=== PATIENT | male | born 1985 | race Caucasian/White ===

== ENCOUNTER 2019-09-24 01:49 | Emergency (ER) | payer SELFPAY ==
[2019-09-24 02:01] VITALS: BP 144/99; PULSE 67
[2019-09-24] MEDS ORDERED: Alum Hydrox/Mag Hydrox/Simeth 30 ML, Lidocaine 2% 15 ML PO STA ×2 (03:47)
[2019-09-24] MEDS ORDERED: Ondansetron 4 MG/2 ML SDV IVPUSH ONE (03:49)
[2019-09-24] MEDS ORDERED: HYDROmorphone 1 MG/ML Syringe IVPUSH ONE (03:49)
--- NOTE | 2019-09-24 03:55 | EDM.PDOC ---
ED HPI GENERAL MEDICAL PROBLEM - General Chief Complaint: Chest Pain Stated Complaint: CHEST PAIN Time Seen by Provider: 09/24/19 03:32 Source of Information: Reports: Patient, Other (3 friends) History Limitations: Reports: No Limitations - History of Present Illness INITIAL COMMENTS - FREE TEXT/NARRATIVE: Mr. Fernandez is a very pleasant 33-year-old man with a past medical history significant for allergic rhinitis and suspected asthma, both untreated, who now presents to the ED with a complaint of epigastric and lower midline chest pain that developed around 23:00 this evening, while eating at [employer]. He describes the sensation as a pressure. It is a pain, not a discomfort. It waxes and wanes, feeling better if he holds his breath or takes a hot shower. He has drunk water, which has not improved his pain. He had nausea earlier tonight, but not now. No emesis. No dyspnea. Questionable diaphoresis. No sense of impending doom. The patient states that he took some TUMS and Pepto-Bismol, without any relief. He states that he had virtually identical symptoms about 1 month ago, also while eating. He did not seek medical attention, and the pain resolved the next day. Here in the ED, the patient's BP was initially mildly elevated, but he is otherwise hemodynamically stable, afebrile, saturating 100% on room air. The patient does not have a PCP. He has not received an influenza vaccine this season, and declined an offer to receive one here today. Middle Chest Pain Score (Numeric/FACES): 7 - Related Data Allergies Allergy/AdvReac Type Severity Reaction Status Date / Time No Known Allergies Allergy Verified 09/24/19 02:00 Home Meds: Home Meds . [No Known Home Meds] 09/24/19 [History] Past Medical History HEENT History: Reports: Allergic Rhinitis Respiratory History: Reports: Asthma (suspected, not tested) - Past Surgical History HEENT Surgical History: Reports: Adenoidectomy, Myringotomy w Tube(s) (bilateral ), Tonsillectomy Social & Family History - Tobacco Use Smoking Status *Q: Current Every Day Smoker Years of Tobacco use: 15 Packs/Tins Daily: 0.5 Packs/Tins Daily Comment: Down from 1 ppd - Caffeine Use Caffeine Use: Reports: Soda - Alcohol Use Alcohol Use History: No - Recreational Drug Use Recreational Drug Use: Yes Drug Use in Last 12 Months: Yes Recreational Drug Type: Reports: Cocaine (last snorted 2017), Marijuana/Hashish (smokes on occasion, last in Aug 2018), Methamphetamine (last smoked 2017) - Living Situation & Occupation Living situation: Reports: Single, Alone Occupation: Unemployed ED ROS GENERAL - Review of Systems Review Of Systems: Comprehensive ROS is negative, except as noted in HPI. ED EXAM, GI/ABD - Physical Exam Exam: See Below Exam Limited By: No Limitations General Appearance: Alert, WD/WN, Mild Distress (Initially sleeping, but once awoken, appears to be uncomfortable) Eyes: Bilateral: Normal Appearance, EOMI Ears: Normal External Exam, Hearing Grossly Normal Nose: Normal Inspection Throat/Mouth: Normal Inspection, Normal Lips, Normal Voice, No Airway Compromise Head: Atraumatic, Normocephalic Neck: Normal Inspection, Full Range of Motion Respiratory/Chest: No Respiratory Distress, Lungs Clear, Normal Breath Sounds, No Accessory Muscle Use Cardiovascular: Normal Peripheral Pulses, Regular Rate, Rhythm, No Edema, No Gallop, No JVD, No Murmur, No Rub GI/Abdominal Exam: Normal Bowel Sounds, Soft, No Organomegaly, No Distention, No Abnormal Bruit, No Mass, Tender (Reproducible tenderness to palpation of his right upper quadrant through to the epigastrium, with the greatest tenderness in the epigastrium. Essentially nontender elsewhere.) (Male) Exam: Deferred Rectal (Males) Exam: Deferred Back Exam: Normal Inspection, Full Range of Motion. No: CVA Tenderness (L), CVA Tenderness (R) Extremities: Normal Inspection, Normal Range of Motion, No Pedal Edema, Normal Capillary Refill Neurological: Alert, Oriented, Normal Cognition, No Motor/Sensory Deficits Psychiatric: Normal Affect Skin Exam: Warm, Dry, Intact, Normal Color, No Rash EKG INTERPRETATION EKG Date: 09/24/19 Time: 02:25 Rhythm: NSR Rate (Beats/Min): 73 Amorita: Normal P-Wave: Present QRS: Normal ST-T: Normal QT: Normal Comparison: NA - No Prior EKG Course - Vital Signs Last Recorded V/S: Last Vital Signs Temp 36.5 C 09/24/19 02:00 Pulse 67 09/24/19 02:00 Resp 16 09/24/19 02:00 BP 144/99 H 09/24/19 02:00 Pulse Ox 100 09/24/19 02:00 - Orders/Labs/Meds Meds: Medications Discontinued Medications Generic Name Dose Route Start Last Admin Trade Name Jeff PRN Reason Stop Dose Admin Al Hydroxide/Mg Hydroxide 30 0 ml 09/24/19 03:47 09/24/19 03:56 ml/ Lidocaine HCl 15 ml PO 09/24/19 03:48 45 ml ONETIME STA Administration Famotidine 40 mg 09/24/19 04:14 09/24/19 04:25 Pepcid PO 09/24/19 04:15 40 mg ONETIME STA Administration Hydromorphone HCl 1 mg 09/24/19 03:49 09/24/19 04:16 Dilaudid IVPUSH 09/24/19 03:50 Not Given ONETIME ONE Sodium Chloride 1,000 mls @ 150 mls/hr 09/24/19 04:00 Normal Saline IV ASDIRECTED [facility] Ondansetron HCl 4 mg 09/24/19 03:49 09/24/19 04:17 Zofran IVPUSH 09/24/19 03:50 Not Given ONETIME ONE - Re-Assessments/Exams Free Text/Narrative Re-Assessment/Exam: 09/24/19 03:48 While the patient is complaining of chest pain, his pain is actually reproducible with palpation to his right upper quadrant and epigastric area, greatest in the epigastrium. The description of his pain is very similar to an impacted esophageal food bolus, except that the patient is able to drink water without regurgitation. Additionally, his pain radiates through to his right infrascapular area, and given the fact that his pain came on while he was eating [employer], and that the last time that this occurred, about a month ago , he was also eating, I have a very strong suspicion that his pain is due to biliary colic. I have ordered a work-up that includes blood work and a chest x- ray, to evaluate for pancreatitis and a hiatal hernia. Unfortunately, because the patient ate less than 5 hours ago, I cannot order an ultrasound of his right upper quadrant at this time, but I could order it in a little more than an hour. In the meantime, the patient will be given a GI cocktail, IV Dilaudid , IV Zofran, and IV fluid. Based on his response to the GI cocktail, I will determine if an ultrasound of his right upper quadrant or a CT of his abdomen and pelvis are warranted. 09/24/19 04:13 Two-view chest radiograph appears to be grossly normal. The cardiac silhouette is within normal limits. No pulmonary vascular congestion. No pleural effusions. No focal infiltrate. No pneumothorax. No suggestion of a hiatal hernia. Formal read per the Radiologist pending. Surprisingly, the patient reports that he has significant relief following the GI cocktail. This indicates that his pain is most likely due to GERD, not biliary colic or pancreatitis. The patient refused an IV, therefore I will cancel the blood work, as it is not necessary, anyway. I will start the patient on famotidine and recommend that he begin taking it regularly. If his pain persists despite taking famotidine regularly, I am recommending that he follow-up to arrange for an EGD. Departure - Departure Time of Disposition: 04:17 Disposition: Home, Self-Care 01 Condition: Good Clinical Impression: GERD (gastroesophageal reflux disease) - Discharge Information *PRESCRIPTION DRUG MONITORING PROGRAM REVIEWED*: Not Applicable *COPY OF PRESCRIPTION DRUG MONITORING REPORT IN PATIENT RAZA: Not Applicable Instructions: Gastroesophageal Reflux Disease, Adult, [id number] Referrals: Zully Rain NP [Nurse Practitioner] - Forms: ED Department Discharge Additional Instructions: You were seen in the emergency room for upper abdominal pain that developed while eating. Work-up in the ER included an ECG and a chest x-ray, both of which were unremarkable. You had significant relief after drinking a GI cocktail, a medicine that numbs your esophagus and stomach, indicating that your pain was due to acid reflux, also known as GERD. Going forward, we recommend that you begin taking [id number] famotidine ( Pepcid), 1 tablet twice a day. Generic famotidine is just as good as brand- name Pepcid. If that works to control your symptoms, you may decrease the dosage to 1 tablet once a day, after about a week or so. If your symptoms remain controlled, just continue 1 tablet once a day, but if your symptoms return, go back up to 1 tablet twice a day. If 1 tablet twice a day fails to control your symptoms, please follow-up with Zully Rain NP, or one of the other providers in the clinic, to arrange for an EGD (scope of your stomach). If any other problems, please do not hesitate to return to the ER. Sepsis Event Note - Evaluation Sepsis Screening Result: No Definite Risk - Focused Exam Date Exam was Performed: 09/26/19 Time Exam was Performed: 10:25
[2019-09-24] MEDS ORDERED: Sodium Chloride 0.9% 1,000 ML IV SCH (04:00)
[2019-09-24] MEDS ORDERED: Famotidine 20 MG Tab PO STA (04:14)
--- NOTE | 2019-09-24 15:24 | CR ---
Chest: 2 views of the chest were obtained. Comparison: Prior chest x-ray is not available. Heart size and mediastinum are normal. Lungs are clear with no acute parenchymal change. Bony structures appear within normal limits. No hiatal hernia is identified on this exam. Impression: 1. Nothing acute is appreciated on 2 view chest x-ray. Diagnostic code #1 This report was dictated in [place] Standard Time
== END 2019-09-24 04:27 | disposition home or self-care (01) ==
LOC: JD.ED 01:49
DX: K21.9 Gastro-esophageal reflux disease without esophagitis (principal); F17.210 Nicotine dependence, cigarettes, uncomplicated
CPT/HCPCS: 71046; 93005; 99285; A9270; 93010; 99283